=== PATIENT | male | born 1955 | race Caucasian/White ===

== ENCOUNTER 2019-05-16 05:17 | Emergency (ER) | payer MEDICARE, OTHER, SELFPAY ==
--- NOTE | 2019-05-16 05:28 | ED.GENADULT ---
HPI - General Adult General Chief complaint: Headache Stated complaint: sudden onset blinding headache/hx sinisitis Time Seen by Provider: 05/16/19 05:19 Source: patient Mode of arrival: Ambulatory Limitations: no limitations History of Present Illness HPI narrative: Patient is a 64-year-old male with known chronic sinus disease here for evaluation of a fairly sudden onset of bilateral with left being greater than right frontal sinus pain last evening. He states that this is the worst he has ever felt. He has had sinus disease in the past has been on antibiotics in the past. Has had to have surgery in the past. Does not currently on any decongestants. No fevers. No sore throat. Took several doses of Tylenol since last evening without any improvement. No vision changes. No neck pain Related Data Home Medications Medication Instructions Recorded Confirmed ESOMEPRAZOLE SODIUM (NEXIUM) 20 mg PO QDAY@0600 #0 07/16/11 Fluticasone Propionate (FLONASE) 2 spray INTRANASAL QDAY #0 07/16/11 fluticasone propion-salmeterol 1 puff INH Q DAY #14 dose 07/16/11 [Advair Diskus] Previous Rx's Medication Instructions Recorded azithromycin See Rx Instructions .ROUTE 05/16/19 .COMPLEX #6 tab hydrocodone-acetaminophen [[place]] 1 tab PO Q4-6H PRN #10 tab 05/16/19 loratadine [Claritin] 10 mg PO DAILY #30 tab 05/16/19 prednisone 40 mg PO DAILY 5 Days #10 tab 05/16/19 Allergies Allergy/AdvReac Type Severity Reaction Status Date / Time From AZMACORT Allergy Mild Uncoded 08/13/17 12:19 Review of Systems Constitutional Constitutional: Denies fever(s) and Reports headache(s) ENT Ears, Nose, Mouth, and Throat: Denies vertigo, Reports headache(s) and Reports sinus pressure Cardiovascular Cardiovascular: Reports chest pain and Denies dyspnea Respiratory Respiratory: Denies dyspnea Gastrointestinal Gastrointestinal: Denies abdominal pain, Reports nausea and Denies vomiting Genitourinary Genitourinary: Denies dysuria Musculoskeletal Musculoskeletal: Denies myalgias and Denies arthralgias Integumentary/Breasts Skin/Breast: Denies rash Neurologic Neurologic: Denies vertigo and Reports headache(s) Hematologic/Lymphatic Hematologic/Lymphatic: Denies easy bleeding and Denies easy bruising Patient History Medical History Sinus disease (Acute) Social History Smoking Status: Never smoker Exam Initial Vital Signs Initial Vital Signs: Vital Signs Temperature 97.7 F 05/16/19 05:29 Pulse Rate 62 05/16/19 05:29 Respiratory Rate 14 05/16/19 05:29 Blood Pressure 154/93 H 05/16/19 05:29 Pulse Oximetry 99 05/16/19 05:29 Const General: cooperative and No comfortable (Uncomfortable) Limitations: mental status not altered HENMT Head: normal to inspection and normocephalic Ears: TM's normal bilaterally Nose: external nose normal Face and sinus: no tenderness Resp Effort & Inspection: normal respiratory effort Auscultation: clear to auscultation bilaterally Cardio Rate: regular rate Rhythm: regular rhythm Skin Lesions: no lesions Rashes: no rashes Neuro General: alert, awake and oriented x3 Cranial Nerves: CN's II-XI intact bilaterally Cognition: normal cognition Speech: speech normal Motor: muscle tone normal throughout Extrem General: normal to inspection and capillary refill normal Psych Appearance: grossly normal and well kempt Course Orders Ordered: ED Orders 05/16/19 05:35 CT head/brain wo con Stat 05/16/19 05:45 Basic Metabolic Panel Stat Complete Blood Count AUTO DIFF Stat Discontinued Medications Hydromorphone HCl (Dilaudid) 0.5 mg IV NOW ONE Stop: 05/16/19 05:36 Last Admin: 05/16/19 05:57 Dose: 0.5 mg Documented by: VLAD Methylprednisolone (Solu-Medrol 125 Mg Vial) 125 mg IV NOW ONE Stop: 05/16/19 05:36 Last Admin: 05/16/19 05:56 Dose: 125 mg Documented by: VLAD Ondansetron HCl (Zofran) 4 mg IV NOW ONE Stop: 05/16/19 06:02 Vital Signs Vital signs: Vital Signs - 8 hr 05/16/19 05:29 Temperature 97.7 F Pulse Rate 62 Respiratory Rate 14 Blood Pressure 154/93 H Pulse Oximetry 99 Medical Decision Making Lab Data Lab results reviewed: Yes I reviewed the patient's lab results. Result diagrams: 05/16/19 05:45 05/16/19 05:45 Labs: Lab Results 05/16/19 05/16/19 Range/Units 05:45 05:45 WBC 5.8 (4.5-11.0) X10^3/uL RBC 4.58 (4.5-5.9) X10^6/uL Hgb 14.6 (13.5-17.5) g/dL Hct 41.9 (41-53) % MCV 91.4 (80-100) fL MCH 31.9 (26-34) PG MCHC 34.9 (30-36) % RDW 12.8 (11.6-14.8) % Plt Count 261 (150-400) X10^3/uL Neut % (Auto) 44.4 L (50-75) % Lymph % (Auto) 43.0 H (25-40) % [place] % (Auto) 9.2 (3-14) % Eos % (Auto) 2.5 (2-4) % Baso % (Auto) 0.9 (0-2) % Neut # (Auto) 2600 (0886-8176) /uL Lymph # (Auto) 2500 (5086-1927) /uL [place] # (Auto) 500 (0-900) /uL Eos # (Auto) 100 (0-450) /uL Baso # (Auto) 0 (0-100) /uL Sodium 138 (137-145) mmol/L Potassium 4.0 (3.4-5.1) mmol/L Chloride 105 (98-107) mmol/L Carbon Dioxide 24 (22-32) mmol/L BUN 14 (9-20) mg/dL Creatinine 0.80 (0.66-1.25) mg/dL Estimated GFR > 60.0 (>60) mL/min BUN/Creatinine Ratio 17.5 (6-22) Glucose 162 H (80-110) mg/dL Calcium 9.9 (8.4-10.2) mg/dL Imaging Data CT scan - head: Radiologist's Impression: No intracranial abnormalities demonstrated Chronic expansion dental paste vacation of the left frontal and anterior ethmoid sinuses, possibly mucocele formation. No acute sinusitis MDM Narrative Medical decision making narrative: Patient did have a fairly sudden onset of his symptoms last evening any states that this is the worst headache that he has had however in character this feels like prior sinus headaches. He does have sinus disease on the CT scan over his left frontal sinus which is where he is experiencing the majority of his symptoms. Given his history I do feel that this is less likely a subarachnoid hemorrhage in more likely sinus disease. We will hold on a lumbar puncture for now. Long discussion with the patient regarding his symptoms. Will send home with a prescription for prednisone. Will give a short course of pain medication. Also send him home with Claritin. He was also given a prescription for antibiotics however he is going to hold on taking these to see whether not the steroids and other treatments will help. He was also given follow-up with the your nose and throat group here in [facility]. He is given return precautions and follow-up instructions. He expressed understanding and agreement with plan. Discharge Plan Departure Patient Disposition: Home Clinical Impression: Sinusitis chronic, frontal Headache Qualifiers: Headache type: unspecified Headache chronicity pattern: unspecified pattern Intractability: not intractable Qualified Code(s): R51 - Headache Instructions: Antihistamine/Decongestant (By mouth) Activity Restrictions/Additional Instructions: Take the medications like we discussed. Contact your primary provider for a follow-up. You can contact the [facility] ENT group at [phone]. Return to the emergency department for any new or worsening symptoms Prescriptions: New loratadine [Claritin] 10 mg tablet 10 mg PO DAILY Qty: 30 RF: 0 prednisone 20 mg tablet 40 mg PO DAILY 5 Days Qty: 10 RF: 0 hydrocodone-acetaminophen [[place]] 5-325 mg tablet 1 tab PO Q4-6H PRN (Reason: pain) Qty: 10 RF: 0 azithromycin 250 mg tablet See Rx Instructions .ROUTE .COMPLEX Qty: 6 RF: 0 No Action ESOMEPRAZOLE SODIUM (NEXIUM) 20 mg PO QDAY@0600 Qty: 0 RF: 0 fluticasone propion-salmeterol [Advair Diskus] 100 MCG/50 MCG blister with device 1 puff INH Q DAY Qty: 14 RF: 0 Fluticasone Propionate (FLONASE) 2 spray Intranasal QDAY Qty: 0 RF: 0 Referrals: Amanda Barrios DO [Primary Care Provider] -
[2019-05-16 05:29] VITALS: BP 154/93; PULSE 62; RESP 14; TEMP 36.5; O2SAT 99; BMI 39.0
--- NOTE | 2019-05-16 05:35 | DI.CT.S_ITS ---
PROCEDURE: CT HEAD/BRAIN WO CON INDICATIONS: sudden onset headache eval for SAH TECHNIQUE: Noncontrast 4.5 mm thick angled axial sections acquired from the foramen magnum to the vertex, with coronal and sagittal reformats. For radiation dose reduction, the following was used: automated exposure control, adjustment of mA and/or kV according to patient size. COMPARISON: [facility], MR, BRAIN WITHOUT CONTRAST, 07/26/2011, 8:33. FINDINGS: Image quality: Diagnostic. CSF spaces: Basal cisterns are patent. No extra-axial fluid collections. Ventricles are normal in size and shape. Brain: No midline shift. No intracranial masses or hemorrhage. Harding-white matter interface is normal. Skull and face: Calvarium and visualized facial bones are intact, without suspicious lesions. Sinuses: Complete opacification with mild enlargement of the left frontal sinus is evident that extends into the frontoethmoidal recess. There is an additional focal polypoid area of enlargement evident involving the region of the middle nasal turbinate adjacent to the nasal septum. IMPRESSION: 1. Negative head CT. No acute intracranial hemorrhage. 2. Chronic left frontal and ethmoidal sinus disease versus developing mucocele. 3. Questionable polyp of the middle nasal turbinate on the right. Contrast enhanced MRI of the sinuses may be helpful for better characterization. Note: The preliminary report provided by [facility] is concordant with the final report. Dictated by: Baldemar Berumen M.D. on 05/16/2019 at 6:59 Approved by: Baldemar Berumen M.D. on 05/16/2019 at 7:03
[2019-05-16] MEDS: methylPREDNISolone 125 MG/2 ML VIAL IV (05:56)
[2019-05-16 05:57] LABS: Add Manual Diff / Slide Review NO; Basophils Absolute Auto 0 /uL (0-100); Basophils Percent Auto 0.9 % (0-2); Eosinophils Absolute Auto 100 /uL (0-450); Eosinophils Percent Auto 2.5 % (2-4); Hematocrit 41.9 % (41-53); Hemoglobin 14.6 g/dL (13.5-17.5); Lymphocytes Absolute Auto 2500 /uL (1100-4500); Mean Corpuscular HGB Conc 34.9 % (30-36); Mean Corpuscular Hemoglobin 31.9 PG (26-34); Mean Corpuscular Volume 91.4 fL (80-100); Monocytes Absolute Auto 500 /uL (0-900); Monocytes Percent Auto 9.2 % (3-14); Neutrophils Absolute Auto 2600 /uL (1500-7000); Neutrophils Percent Auto 44.4 % (50-75); Platelet Count 261 X10^3/uL (150-400); Red Blood Cell Count 4.58 X10^6/uL (4.5-5.9); Red Cell Distribution Width 12.8 % (11.6-14.8); White Blood Cell Count 5.8 X10^3/uL (4.5-11.0)
[2019-05-16] MEDS: HYDROMORPHONE 0.5 MG INJ IV (05:57)
[2019-05-16 06:05] LABS: BUN Creatinine Ratio 17.5 (6-22); Blood Urea Nitrogen 14 mg/dL (9-20); Calcium 9.9 mg/dL (8.4-10.2); Carbon Dioxide 24 mmol/L (22-32); Chloride 105 mmol/L (98-107); Estimated Glomerular Filt Rate > 60.0 mL/min (>60); Glucose 162 mg/dL (80-110); HEMOLYSIS < 15 (0-50); Sodium 138 mmol/L (137-145)
[2019-05-16 06:54] VITALS: BP 163/88; PULSE 60; RESP 14; O2SAT 99
== END 2019-05-16 06:56 | disposition home or self-care (01) ==
PROVIDERS: Emergency Provider Emergency Medicine; PCP Family Medicine
DX: J32.1 Chronic frontal sinusitis (principal); R51 Headache; R07.9 Chest pain, unspecified
CPT/HCPCS: 36415; 70450; 80048; 85025; 96374; 96375; 99284; J1170; J2930

== ENCOUNTER 2020-01-01 16:20 | Emergency (ER) | payer MEDICARE, OTHER, SELFPAY ==
[2020-01-01 16:28] VITALS: BP 142/83; PULSE 72; RESP 16; TEMP 36.7; O2SAT 97; BMI 38.3
--- NOTE | 2020-01-01 20:01 | ED.GENADULT ---
HPI - General Adult General Chief complaint: Ear Stated complaint: pain in left ear, jaw pain, cant chew Time Seen by Provider: 01/01/20 18:10 Source: patient Mode of arrival: Ambulatory Limitations: no limitations History of Present Illness HPI narrative: 64-year-old male here for evaluation of left ear pain and left-sided face and jaw pain. Patient states that his symptoms started yesterday morning. He states he felt like that there was something like a pimple in his left ear. He has ruptured this left eardrum in the past. He states he does have a muffled hearing in the left ear. Also has problems chewing an opening his drawn the left. No problems breathing. Related Data Home Medications Medication Instructions Recorded Confirmed ESOMEPRAZOLE SODIUM (NEXIUM) 20 mg PO QDAY@0600 #0 07/16/11 Fluticasone Propionate (FLONASE) 2 spray INTRANASAL QDAY #0 07/16/11 fluticasone propion-salmeterol 1 puff INH Q DAY #14 dose 07/16/11 [Advair Diskus] Previous Rx's Medication Instructions Recorded azithromycin See Rx Instructions .ROUTE 05/16/19 .COMPLEX #6 tab hydrocodone-acetaminophen [[place]] 1 tab PO Q4-6H PRN #10 tab 05/16/19 loratadine [Claritin] 10 mg PO DAILY #30 tab 05/16/19 ofloxacin 10 drop EAR-LEFT DAILY 7 Days #10 01/01/20 ml Allergies Allergy/AdvReac Type Severity Reaction Status Date / Time From AZMACORT Allergy Mild Uncoded 01/01/20 16:28 Review of Systems Constitutional Constitutional: Denies fever(s) and Denies headache(s) ENT Ears, Nose, Mouth, and Throat: Reports dental pain (Left side), Denies vertigo, Denies dizziness, Denies headache(s), Denies nasal congestion and Denies nasal discharge Comments: Left ear pain Cardiovascular Cardiovascular: Denies dyspnea Respiratory Respiratory: Denies dyspnea Integumentary/Breasts Skin/Breast: Denies lesions and Denies rash Neurologic Neurologic: Denies behavioral changes, Denies vertigo, Denies dizziness and Denies headache(s) Psychiatric Psychiatric: Denies behavioral changes Hematologic/Lymphatic Hematologic/Lymphatic: Denies easy bleeding and Denies easy bruising Patient History Medical History Sinus disease (Acute) Social History Smoking Status: Never smoker Smoking Status: Never smoker alcohol intake frequency: 0-2 drinks per day Substance Use Type: does not use Exam Initial Vital Signs Initial Vital Signs: Vital Signs Temperature 98.0 F 01/01/20 16:28 Pulse Rate 72 01/01/20 16:28 Respiratory Rate 16 01/01/20 16:28 Blood Pressure 142/83 H 01/01/20 16:28 Pulse Oximetry 97 01/01/20 16:28 Const General: cooperative, healthy appearing and comfortable HENMT Head: normal to inspection and normocephalic Ears: TM normal on the left and EAC abnormal erythema on the left and edema on the left Neck Lymphatic: lymphadenopathy (Left preauricular/submandibular) Resp Effort & Inspection: normal respiratory effort Skin Lesions: no lesions Rashes: no rashes Neuro General: patient alert and patient awake Extrem General: capillary refill normal Course Orders Ordered: Discontinued Medications Ciprofloxacin/Dexamethasone (Ciprodex Otic Susp) 4 drops EAR-LEFT NOW ONE Stop: 01/01/20 20:03 Last Admin: 01/01/20 20:28 Dose: 10 drop Documented by: KRISTIAN Vital Signs Vital signs: Vital Signs - 8 hr 01/01/20 16:28 01/01/20 20:36 Temperature 98.0 F 98.0 F Pulse Rate 72 72 Respiratory Rate 16 16 Blood Pressure 142/83 H 140/80 Pulse Oximetry 97 98 Medical Decision Making [facility] Narrative Medical decision making narrative: History and physical exam consistent with otitis externa. Does have some mild swelling of the left EAC however the tympanic membrane is visible and it is unremarkable. Patient is given 1st dose of ear drops here in the ER and will send home with the remainder of the about on instructions for use. Will hold on any oral antibiotics for now. Did discuss return precautions and follow-up instructions. He expressed understanding and agreement. Discharge Plan Departure Patient Disposition: Home Clinical Impression: Otitis externa Qualifiers: Otitis externa type: unspecified type Chronicity: acute Laterality: left Qualified Code(s): H60.502 - Unspecified acute noninfective otitis externa, left ear Discharge Date/Time: 01/01/20 20:36 Instructions: DI for Otitis Externa Activity Restrictions/Additional Instructions: Your 1st dose of your drops was given here in the emergency department. This medication should be administered as 10 drops in the left ear once a day for the next 7 days. You can take Tylenol and/or ibuprofen for any discomfort. Return to the emergency department for any new or worsening symptoms Prescriptions: New ofloxacin 0.3 % drops 10 drop EAR-LEFT DAILY 7 Days Qty: 10 RF: 0 No Action ESOMEPRAZOLE SODIUM (NEXIUM) 20 mg PO QDAY@0600 Qty: 0 RF: 0 fluticasone propion-salmeterol [Advair Diskus] 100 MCG/50 MCG blister with device 1 puff INH Q DAY Qty: 14 RF: 0 Fluticasone Propionate (FLONASE) 2 spray Intranasal QDAY Qty: 0 RF: 0 loratadine [Claritin] 10 mg tablet 10 mg PO DAILY Qty: 30 RF: 0 hydrocodone-acetaminophen [[place]] 5-325 mg tablet 1 tab PO Q4-6H PRN (Reason: pain) Qty: 10 RF: 0 azithromycin 250 mg tablet See Rx Instructions .ROUTE .COMPLEX Qty: 6 RF: 0 Referrals: Amanda Barrios DO [Primary Care Provider] -
[2020-01-01] MEDS: CIPROFLOXACIN/DEXAMETH OTIC SUSP 4 DROPS EAR-LEFT (20:28)
[2020-01-01 20:36] VITALS: BP 140/80; PULSE 72; RESP 16; TEMP 36.7; O2SAT 98
== END 2020-01-01 20:36 | disposition home or self-care (01) ==
PROVIDERS: Emergency Provider Emergency Medicine; PCP Family Medicine
DX: H60.502 Unspecified acute noninfective otitis externa, left ear (principal)
CPT/HCPCS: 99282

== ENCOUNTER → 2020-07-31 15:43 | Outpatient (CLI) | payer MEDICARE, OTHER, SELFPAY ==
--- NOTE | 2020-07-31 15:46 | DI.MRI.S_ITS ---
PROCEDURE: MR SHOULDER RT WO CON INDICATIONS: PAIN IN RIGHT SHOULDER TECHNIQUE: Noncontrast oblique coronal T2 fast spin echo with fat saturation, oblique sagittal T1 spin echo and T2 fast spin echo with fat saturation, axial T1 spin echo and T2 fast spin echo with fat saturation through the shoulder. COMPARISON: None. FINDINGS: Rotator cuff: Full-thickness tear of the supraspinatus and infraspinatus tendons measuring approximately 3.5 cm in AP dimension as seen on sagittal pulse sequences. Teres minor tendinopathy also noted, mild. There is full-thickness tear of the subscapularis tendon which is not well visualized. Background tendinopathy and intrasubstance signal changes. There is severe atrophy of the supraspinatus and infraspinatus muscle. There is also mild atrophy of the subscapularis muscle. Bones and bursae: No bone marrow contusions or fractures. Moderate acromioclavicular joint degeneration. Acromion demonstrates conventional anatomy, without an os acromiale. Mild joint effusion. Capsule and soft tissues: Labrum: Ill-defined circumferential labral tear which is likely chronic. Posterior subluxed appearance of the humeral head relative to the glenoid raising the possibility of microinstability. Medial subluxation of the long head biceps tendon. There is background long head biceps tendinopathy and partial tear. No definite complete rupture. Partial obliteration of the subcoracoid fat signal intensity. Coracohumeral ligament intact. IMPRESSION: Full-thickness tear involving the supraspinatus, infraspinatus and subscapularis tendons. Severe atrophy of the supraspinatus and infraspinatus muscles. Mild atrophy of the subscapularis muscle Mild joint effusion. Circumferential ill-defined labral tear, likely chronic. Posterior subluxed appearance of the humeral head relative to the glenoid which raises the possibility of microinstability. Medial subluxation of long head biceps tendon with background tendinopathy and partial tear. Dictated by: Víctor Burnette M.D. on 07/31/2020 at 16:47 Approved by: Víctor Burnette M.D. on 07/31/2020 at 16:58
== END ==
PROVIDERS: PCP Family Medicine; Referring Provider Family Medicine; Visit Provider Family Medicine
DX: M25.511 Pain in right shoulder (principal); M75.121 Complete rotator cuff tear or rupture of right shoulder, not specified as traumatic; S46.111A Strain of muscle, fascia and tendon of long head of biceps, right arm, initial encounter; S43.491A Other sprain of right shoulder joint, initial encounter; M19.011 Primary osteoarthritis, right shoulder; M25.411 Effusion, right shoulder
CPT/HCPCS: 73221

== ENCOUNTER → 2020-08-28 13:30 | Outpatient (CLI) | payer MEDICARE, OTHER, SELFPAY ==
[2020-08-28 15:53] LABS: COVID19 -Nasal RAPID Negative (Negative)
== END ==
PROVIDERS: PCP Family Medicine; Visit Provider Physician Assistant
DX: Z01.812 Encounter for preprocedural laboratory examination (principal); Z20.822 Contact with and (suspected) exposure to COVID-19
CPT/HCPCS: 87635; C9803

== ENCOUNTER 2020-08-31 06:30 | Day surgery (SDC) | payer MEDICARE, OTHER, SELFPAY ==
[2020-08-29 13:23] VITALS: BMI 39.0
[2020-08-31] VITALS (13 sets, daily range): BP systolic 127–149; BP diastolic 73–85; PULSE 67–83; RESP 10–20; TEMP 36.3–36.8; O2SAT 92–96; BMI 38.0
[2020-08-31] MEDS: ACETAMINOPHEN 325 MG TABLET 975 MG PO (07:07)
[2020-08-31] MEDS: CELECOXIB 200 MG CAPSULE 400 MG PO (07:07)
[2020-08-31] MEDS: GABAPENTIN 300 MG CAPSULE PO (07:07)
[2020-08-31] MEDS: LACTATED RINGERS 1,000 ML 42 ML IV ×2 (07:08→09:30)
--- NOTE | 2020-08-31 07:38 | PM.PREOP ---
Pre-operative Note COVID-19 COVID-19 status: Negative Result date/Date tested (Pos, Neg/Pending): 08/29/20 Interval Note History & Physical reviewed/Exam performed by Physician: Yes Changes to H&P: No
[2020-08-31] MEDS: CEFAZOLIN 2 GM/100 ML FROZ.PIGGY IV (08:32)
--- NOTE | 2020-08-31 08:44 | PM.PROC.1 ---
Procedures Date/Time Date of procedure: 08/31/20 Time of procedure: 08:13 Nerve Block Time out performed: Yes Nerve blocks: brachial plexus (intrascalene) Procedure successful: Yes Patient tolerated procedure: well and no complications Additional comments: Intrascalene block performed for post-op pain control at surgeon request. Patient was positioned with IV, O2, monitors and rescue meds available. Prepped and timeout performed. Target identified with continuous ultrasound guidance. 12mL of bupivicaine 0.5% was injected perineurally with intermittent aspiration and injection. No blood, no paresthesias, no acute complications.
--- NOTE | 2020-08-31 08:49 | SUR.OPER ---
Beach chair with/Maquet shoulder positioner. Lower body on padded OR bed. Head in foam padded head cradle, secured with straps. Non-operative arm secured <90 degrees abduction. Pillow under knees. Safety belt at thigh. Cloth tape over blanket over lower legs.
[2020-08-31] MEDS: BUPIVACAINE 0.5% W/ EPI (PF) 30 ML VIAL INJ (08:57)
[2020-08-31] MEDS: SODIUM CHLORIDE IRRIG SOLUTION 3,000 ML, EPINEPHrine 1 MG IRR (09:01)
[2020-08-31] MEDS: fentaNYL 100 MCG/2 ML INJ IV ×4 (11:10→12:01)
[2020-08-31] MEDS: OXYCODONE IR 5 MG TABLET PO ×2 (11:11→11:40)
[2020-08-31] MEDS: ONDANSETRON 4 MG/2 ML INJ IV (11:11)
--- NOTE | 2020-08-31 11:21 | PM.OP.1 ---
Operative Date/Time/Diagnoses Date of procedure: 08/31/20 Time of procedure: 08:30 Pre-op diagnosis: Right shoulder massive rotator cuff tear Post-op diagnosis: same Procedure & Clinicians Procedure: Right shoulder arthroscopic debridement and subacromial decompression as well as distal excision. Open repair the supraspinatus, infraspinatus, subscapularis. Same procedure as scheduled: Yes Indications: Right shoulder massive rotator cuff tear Surgeon: Sergio Cordova In House Cra: Gabriel Dumont Anesthesia Type: General and Peripheral nerve block Operative Notes Findings: Complete tears of the infraspinatus supraspinatus and subscapularis. Infraspinatus and supraspinatus were retracted to the glenoid. Subscapularis was also retracted just past the coracoid process. No sign of any significant glenohumeral joint arthritis. Early signs of a high-riding humeral head. Closure Type: primary Specimen(s): none sent Applied: implant(s) (Two SwiveLock anchors for the subscapularis repair. Speed bridge repair using 4 anchors for the supraspinatus and infraspinatus.) Estimated Blood Loss (mL): 10 Blood products transfused: none Procedure in detail: On date of service, Patient was met in the holding area. The operative site was signed and witnessed by the OR staff. The surgery was once again discussed with the patient and any remaining questions they had were answered fully. Patient was taken back to the operating theater and placed on the operating table in a supine position. Great care was taken to ensure that all bony prominences were properly padded. Patient was then placed into the beach chair position. The head and neck were properly positioned and secured. A timeout was performed verifying patient's name, procedure, and the operative site. The upper extremity was then prepped and draped in the normal sterile fashion. Previously, the bony anatomy and portal sites were marked out as well as injected with Marcaine with epinephrine. An 11 blade was used to make an incision in the posterior aspect of the shoulder. The camera was placed, and a diagnostic shoulder scope was performed. Findings listed above. Next under direct visualization, a anterior portal was made. Shaver was brought in and extensive debridement of the glenohumeral joint was performed. Patient had significant amount of degenerative changes to the labral tissue. Once all the degenerative tissue in the glenohumeral joint was removed we then turned our attention to the subacromial space. Next the camera was placed into the subacromial space. A lateral portal was obtained under direct visualization. A combination of the shaver and vapor wand, a debridement of the inflamed tissue as well as inflamed bursa was performed. The lateral gutter was also cleaned out. This gave us good visualization of the bursal aspect of the rotator cuff as well as the acromial arch. As mentioned above, patient had complete tear of the supraspinatus and infraspinatus. The torn edge of the rotator cuff showed quite a bit of degenerative changes. Shaver was used to remove the bursal tissue as well as debride out the degenerative edges of the rotator cuff. Liberator was used to free up the rotator cuff both bursal and articular sided. Patient also had a massive subscapularis tear and due to this fact we converted to a open procedure at this point. A lateral incision was used to address the supraspinatus and infraspinatus. Ten blade was used to incise through skin and fascial tissue. Electrocautery was used to achieve hemostasis. Continued sharp dissection was performed until the deltoid fascia was visualized. This was extended both distally and proximally giving us good visualization of the humeral head as well as the subacromial space. Using a Johnson elevator the rotator cuff was freed of any adhesions both articular sided as well as bursal sided. The degenerative portion was sharply excised using a 10 blade. Traction sutures were placed. Patient had A U shaped tear which was amenable to a [id number] repair. 2. FiberWire was used to do a [id number] repair converting the rather large rotator cuff tear to something smaller and more manageable. Next a speed bridge repair was done to repair both the supraspinatus and infraspinatus back to the rotator cuff footprint. Combination of the rongeur and bur were used to decorticate the rotator cuff footprint. Double row repair was performed of the supraspinatus and infraspinatus forming a secure repair as well as rhea covering the humeral head which was previously almost completely exposed. We next turned our attention to subscapularis. A anterior incision was made extending our anterior portal. This was done with a 10 blade. Johnson elevator was used again to free up the tendon tissue from adhesions both bursal sided and articular sided. Once we had good excursion of the subscapularis two fiber tape was passed in a horizontal mattress fashion and then was placed into two swivel lock anchor to secure the subscapularis back to the lesser tuberosity. Shoulder was taken through range of motion. Good overall repair and coverage of the rotator cuff and humeral head. Wound was copiously irrigated then closed in a layered fashion. Deltoid fascia was repaired using FiberWire. This gave a good solid repair of the split that was made in the deltoid fascia. Shoulder was cleaned dried dressed patient was extubated and taken to the PACU in stable condition. Complications: none Post-operative Condition: stable Disposition: PACU Plan for aftercare: Patient will need to be in the sling for 6 weeks to protect his rotator cuff repair.
[2020-08-31] MEDS: hydrOXYzine pamoate 25 MG CAPSULE 50 MG PO (11:38)
--- NOTE | 2020-08-31 12:59 | SUR.PHASEII ---
Pt ready to go home, called, pt assisted to dress by Helen PORTILLO. Sitting awaiting ride to come.
--- NOTE | 2020-08-31 13:09 | SUR.PHASEII ---
Pt left unit in stable condition.
== END 2020-08-31 13:09 | disposition home or self-care (01) ==
PROVIDERS: PCP Family Medicine; Referring Provider Family Medicine; Visit Provider Orthopaedic Surgery
PROC: (CPT 29827; principal; 2020-08-31 07:45)
DX: S46.011A Strain of muscle(s) and tendon(s) of the rotator cuff of right shoulder, initial encounter (principal); S46.211A Strain of muscle, fascia and tendon of other parts of biceps, right arm, initial encounter; E66.9 Obesity, unspecified; E11.9 Type 2 diabetes mellitus without complications; J45.909 Unspecified asthma, uncomplicated; G47.33 Obstructive sleep apnea (adult) (pediatric); K21.9 Gastro-esophageal reflux disease without esophagitis; W19.XXXA Unspecified fall, initial encounter; Z68.39 Body mass index [BMI] 39.0-39.9, adult; Z79.84 Long term (current) use of oral hypoglycemic drugs; Z87.891 Personal history of nicotine dependence
CPT/HCPCS: 23412; 29823; 29826; 82962; J0171; J0330; J0690; J2250; J2405; J2704; J3010

== ENCOUNTER → 2021-12-03 17:15 | Outpatient (CLI) | payer MEDICARE, OTHER, SELFPAY ==
--- NOTE | 2021-12-03 | DI.MRI.S_ITS ---
PROCEDURE: MR ANGIO HEAD WO CON INDICATIONS: Primary thunderclap headache TECHNIQUE: Noncontrast axial 3-D [id number] MR angiogram, with 3-dimensional maximum intensity projection (MIP) reformats of the internal carotid arteries and posterior circulation then performed. COMPARISON: [facility], MR, BRAIN WITHOUT CONTRAST, 07/26/2011, 8:33. [facility], MR, MR HEAD/BRAIN WO CON, 12/03/2021, 17:33. FINDINGS: Image quality: Excellent. Anterior circulation: Intracranial internal carotid arteries demonstrate normal size and intraluminal flow signal. The flow within the paired anterior cerebral arteries is normal and symmetric. The flow within the middle cerebral arteries is normal and symmetric. The anterior communicating artery is seen. No stenoses, occlusions, or aneurysms. Posterior circulation: Visualized portions of the vertebral arteries demonstrate normal caliber, and join to form a normal appearing basilar artery. The flow within the posterior cerebral arteries is normal and symmetric. No stenoses, occlusions, or aneurysms. IMPRESSION: Unremarkable intracranial angiogram, without an aneurysm seen. Dictated by: Kirby Peralta M.D. on 12/03/2021 at 17:56 Approved by: Kirby Peralta M.D. on 12/03/2021 at 17:57
--- NOTE | 2021-12-03 | DI.MRI.S_ITS ---
PROCEDURE: MR HEAD/BRAIN WO CON INDICATIONS: Primary thunderclap headache TECHNIQUE: Non-contrast axial T1 spin echo, axial T2 fast spin echo, sagittal and axial FLAIR, coronal T2 fast spin echo, axial gradient echo, axial diffusion and ADC through the brain. COMPARISON: [facility], CT, CT HEAD/BRAIN WO CON, 05/16/2019, 5:38. [facility], MR, MR ANGIO HEAD WO CON, 12/03/2021, 17:22. [facility], MR, BRAIN WITHOUT CONTRAST, 07/26/2011, 8:33. FINDINGS: Image quality: Excellent. CSF spaces: Ventricles appear symmetric in size and shape. Basal cisterns are patent. No extra-axial fluid collections. Brain: No intracranial bleeds or mass effects. There is cerebral volume loss for age. There are periventricular and deep white matter chronic small vessel ischemic changes. Brainstem appears normal. Diffusion-weighted images show no acute ischemic insults. No chronic ischemic insults. Normal intravascular flow voids are present. Skull and face: Calvarial bone marrow is normal in signal. Orbits are normal. Sinuses: Scattered areas of moderate mucosal thickening can be seen within the paranasal sinuses. Prior postoperative change can be seen, with at least right antrectomy. No abnormal fluid is seen within the mastoid air cells. IMPRESSION: No significant brain abnormality can be seen. Paranasal sinus disease and prior sinus surgery can be seen. Dictated by: Kirby Peralta M.D. on 12/03/2021 at 18:10 Approved by: Kirby Peralta M.D. on 12/03/2021 at 18:12
== END ==
PROVIDERS: PCP Family Medicine; Referring Provider Psychiatry & Neurology Neuromuscular Medicine; Visit Provider Psychiatry & Neurology Neuromuscular Medicine
DX: G44.53 Primary thunderclap headache (principal); J32.8 Other chronic sinusitis
CPT/HCPCS: 70544; 70551

== ENCOUNTER 2023-03-31 16:36 | Emergency (ER) | payer MEDICARE, OTHER, SELFPAY ==
[2023-03-31 17:10] VITALS: BP 162/106; PULSE 86; RESP 18; TEMP 36.9; O2SAT 96; BMI 37.6
[2023-03-31 17:38] LABS: Appearance Urine UA CLEAR; Bilirubin Urine UA NEGATIVE (NEGATIVE); Color Urine UA YELLOW; Glucose Urine UA NEGATIVE (Negative); Ketones Urine UA TRACE (NEGATIVE); Leukocyte Esterase Urine UA NEGATIVE (NEGATIVE); Nitrite Urine UA NEGATIVE (Negative); Occult Blood Urine UA 1+ (Negative); Protein Urine UA NEGATIVE (Negative); Urobilinogen Urine UA 0.2 E.U./dL (0.2)
[2023-03-31 17:47] LABS: Bacteria Urine None Seen; Culture Indicated Urine Cult Not Indicated; RBC Urine 5-10/HPF (0-5/HPF); Squamous Epithelial Cell Urine 0-1 /HPF (0-5/HPF); WBC Urine 0-1/HPF (0-5/HPF)
[2023-03-31 18:21] LABS: Add Manual Diff / Slide Review NO; Basophils Absolute Auto 100 /uL (0-100); Eosinophils Absolute Auto 200 /uL (0-450); Eosinophils Percent Auto 1.6 % (2-4); Hemoglobin 13.9 g/dL (13.5-17.5); Lymphocytes Absolute Auto 3000 /uL (1100-4500); Lymphocytes Percent Auto 26.5 % (25-40); Mean Corpuscular HGB Conc 34.7 % (30-36); Mean Corpuscular Hemoglobin 30.9 PG (26-34); Mean Corpuscular Volume 88.9 fL (80-100); Monocytes Absolute Auto 800 /uL (0-900); Monocytes Percent Auto 7.2 % (3-14); Neutrophils Absolute Auto 7100 /uL (1500-7000); Neutrophils Percent Auto 63.7 % (50-75); Platelet Count 269 X10^3/uL (150-400); Red Cell Distribution Width 12.9 % (11.6-14.8); White Blood Cell Count 11.1 X10^3/uL (4.5-11.0)
--- NOTE | 2023-03-31 18:26 | ED_ITS ---
HPI - General Adult General Chief complaint: Abdominal Pain Stated complaint: Sharp lower abd pain on left X 4 days Time Seen by Provider: 03/31/23 18:06 Source: patient Mode of arrival: Ambulatory History of Present Illness HPI narrative: Patient is a 68-year-old male who is here for evaluation of left lower quadrant abdominal pain for the past 4 days. No fevers. No nausea or vomiting. No change in bowel habits. No blood in his stool. No urinary symptoms. No change in the pain with urination or bowel movements. He has had a colonoscopy sometime within the past 5-10 years. He was told that he would diverticulosis. No history of diverticulitis. No history of kidney stones. Related Data Home Medications Medication Instructions Recorded Confirmed esomeprazole magnesium 20 mg 20 mg PO DAILY ##0 07/16/11 08/31/20 capsule,delayed release fluticasone 100 mcg-salmeterol 50 1 puff INH Q DAY #14 doses 07/16/11 08/31/20 mcg/dose blistr powdr for inhalation (Advair Diskus) metformin 500 mg tablet,extended 500 mg PO QPM 08/30/20 08/31/20 release 24 hr rosuvastatin 10 mg tablet 10 mg PO QPM 08/30/20 08/31/20 sertraline 50 mg tablet 50 mg PO DAILY 08/30/20 08/31/20 acetaminophen 500 mg tablet 1,500 mg PO BID PRN Pain (Scale 08/31/20 08/31/20 Score 4-6) Previous Rx's Medication Instructions Recorded hydrocodone 7.5 mg-acetaminophen 2 tab PO Q4-6H PRN pain #60 tabs 08/31/20 325 mg tablet hydroxyzine pamoate 25 mg capsule 25 mg PO TID-QID PRN spasms #60 08/31/20 (Vistaril) caps oxycodone-acetaminophen 5 mg-325 2 tab PO Q4-6H PRN pain #60 tabs 08/31/20 mg tablet (Percocet) ciprofloxacin HCl 500 mg tablet 500 mg PO Q12H 10 days #20 tabs 03/31/23 (Cipro) metronidazole 500 mg tablet 500 mg PO TID 10 days #30 tabs 03/31/23 Allergies Allergy/AdvReac Type Severity Reaction Status Date / Time budesonide [From Symbicort] AdvReac Intermediate Rash Verified 08/31/20 06:51 formoterol [From Symbicort] AdvReac Intermediate Rash Verified 08/31/20 06:51 Review of Systems Constitutional Constitutional: Reports system reviewed and no additional complaints, except as documented Cardiovascular Cardiovascular: Reports system reviewed and no additional complaints, except as documented Respiratory Respiratory: Reports system reviewed and no additional complaints, except as documented Gastrointestinal Gastrointestinal: Reports system reviewed and no additional complaints, except as documented Genitourinary Genitourinary: Reports system reviewed and no additional complaints, except as documented Neurologic Neurologic: Reports system reviewed and no additional complaints, except as documented Patient History Medical History Asthma Melanoma Sinus disease Surgical History (Updated 08/29/20 @ 13:34 by Devi Wong RN) Hx of colonoscopy (08/19/20) Social History household members: spouse Smoking Status: Former smoker alcohol intake: current Smoking Status: Former smoker alcohol intake frequency: a few times a week Substance Use Type: does not use Exam Initial Vital Signs Initial Vital Signs: Vital Signs Temperature 98.4 F 03/31/23 17:10 Pulse Rate 86 03/31/23 17:10 Respiratory Rate 18 03/31/23 17:10 Blood Pressure 162/106 H 03/31/23 17:10 Pulse Oximetry 96 03/31/23 17:10 Oxygen Delivery Method Room Air 03/31/23 17:10 HENMT Head: normal to inspection and normocephalic GI Inspection: normal to inspection and non-distended Palpation: soft, No firm, No guarding and tender (Left lower abdomen) Skin General: no rashes or lesions noted Neuro General: patient alert and patient awake Course Orders Ordered: ED Orders 03/31/23 17:14 EKG-12 Lead Stat 03/31/23 17:15 Urinalysis and Microscopic Stat 03/31/23 18:10 Complete Blood Count AUTO DIFF Stat 03/31/23 18:29 CT abdomen pelvis w con Stat 03/31/23 18:50 Comprehensive Metabolic Panel Stat Lipase Stat Discontinued Medications Ondansetron HCl (Ondansetron 4 Mg Odt) 4 mg PO NOW PRN PRN Reason: Nausea And Vomiting Ondansetron HCl (Ondansetron 4 Mg/2 Ml Inj) 4 mg IV NOW PRN PRN Reason: Nausea And Vomiting Vital Signs Vital signs: Vital Signs - 8 hr 03/31/23 17:10 03/31/23 18:54 03/31/23 20:49 Temperature 98.4 F 98.1 F Pulse Rate 86 73 78 Respiratory Rate 18 18 20 Blood Pressure 162/106 H 157/77 H 141/82 H Pulse Oximetry 96 96 96 Oxygen Delivery Method Room Air Room Air Room Air Medical Decision Making Lab Data Lab results reviewed: Yes I reviewed the patient's lab results. 03/31/23 18:10 03/31/23 18:50 Labs: Lab Results 03/31/23 03/31/23 03/31/23 Range/Units 17:15 18:10 18:50 WBC 11.1 H (4.5-11.0) X10^3/uL RBC 4.50 (4.5-5.9) X10^6/uL Hgb 13.9 (13.5-17.5) g/dL Hct 40.0 L (41-53) % MCV 88.9 (80-100) fL MCH 30.9 (26-34) PG MCHC 34.7 (30-36) % RDW 12.9 (11.6-14.8) % Plt Count 269 (150-400) X10^3/uL Neut % (Auto) 63.7 (50-75) % Lymph % (Auto) 26.5 (25-40) % [place] % (Auto) 7.2 (3-14) % Eos % (Auto) 1.6 L (2-4) % Baso % (Auto) 1.0 (0-2) % Neut # (Auto) 7100 H (9627-9228) /uL Lymph # (Auto) 3000 (3982-5396) /uL [place] # (Auto) 800 (0-900) /uL Eos # (Auto) 200 (0-450) /uL Baso # (Auto) 100 (0-100) /uL Sodium 137 (137-145) mmol/L Potassium 4.0 (3.4-5.1) mmol/L Chloride 104 (98-107) mmol/L Carbon Dioxide 26 (22-32) mmol/L BUN 12 (9-20) mg/dL Creatinine 0.80 (0.66-1.25) mg/dL Estimated GFR > 60 (>60) mL/min BUN/Creatinine Ratio 15.0 (6-22) Glucose 110 (80-110) mg/dL Calcium 10.1 (8.4-10.2) mg/dL Total Bilirubin 0.6 (0.2-1.3) mg/dL AST 40 (17-59) IU/L ALT 61 H (<50) IU/L Alkaline Phosphatase 55 (38-126) U/L Total Protein 7.6 (6.3-8.2) g/dL Albumin 4.3 (3.5-5.0) g/dL Globulin 3.3 (1.7-4.1) g/dL Albumin/Globulin Ratio 1.3 (1.0-2.8) Lipase 141 (23-300) U/L Urine Color Yellow Urine Appearance Clear Urine pH 7.0 (4.5-8.0) Ur Specific [place] 1.020 (1.000-1.035) Urine Protein Negative (Negative) Urine Glucose (UA) Negative (Negative) g/dL Urine Ketones Trace H (NEGATIVE) Urine Occult Blood 1+ H (Negative) Urine Nitrate Negative (Negative) Urine Bilirubin Negative (NEGATIVE) Urine Urobilinogen 0.2 (0.2) E.U./dL Ur Leukocyte Esterase Negative (NEGATIVE) Urine RBC 5-10/hpf H (0-5/HPF) Urine WBC 0-1/hpf (0-5/HPF) Ur Squamous Epith Cells 0-1 /hpf (0-5/HPF) Urine Bacteria None seen (None) Ur Culture Indicated? Cult not indicated Imaging Data CT scan - abdomen/pelvis: Radiologist's Impression: PROCEDURE: CT ABDOMEN PELVIS W CON INDICATIONS: LLQ abd pain TECHNIQUE: After the administration of intravenous contrast, axial sections acquired from the lung bases to the pubic symphysis. Coronal and sagittal reformats were performed. For radiation dose reduction, the following was used: automated exposure control, adjustment of mA and/or kV according to patient size. COMPARISON: None. FINDINGS: Image quality: Excellent. Lung bases: Unremarkable. Heart: No significant findings. ABDOMEN: Liver: Liver is mildly hypoattenuating, consistent with diffuse fatty infiltration. Gallbladder: Gallbladder is contracted, which compromises evaluation. No acute inflammatory changes are seen. Biliary ducts: Unremarkable. Pancreas: Unremarkable. Spleen: Unremarkable. Adrenal Glands: Mild nodular thickening of the left adrenal gland without a well-defined nodule seen. Kidneys and Ureters: 2 mm nonobstructing right renal calculus. No hydronephrosis. Stomach and Bowel: Multiple diverticula are seen in the colon. There is bowel wall thickening and inflammatory fat stranding surrounding a diverticulum at the junction of the descending and sigmoid colon. No focal fluid collection is seen. No pneumoperitoneum. Small bowel loops and stomach are unremarkable. Normal appendix. Peritoneum: No abnormal intraperitoneal fluid. No free air. Ventral Wall: No hernias. Abdominal Nodes: No retroperitoneal or mesenteric adenopathy by size criteria. Vessels: Aorta and inferior vena cava are normal in size. PELVIS: Pelvic Organs: Unremarkable. Bladder: Unremarkable. Pelvic Nodes: No enlarged lymph nodes. Miscellaneous: Small fat containing left inguinal hernia. Bones: Unremarkable. IMPRESSION: 1. Acute uncomplicated diverticulitis at the junction of the descending and sigmoid colon. 2. Mild diffuse hepatic steatosis. 3. Nonobstructing 2 mm left renal calculus. ECG Data Attestation: I personally reviewed and interpreted this ECG as follows: Interpretation: Sinus rhythm Ventricular rate is 77 Normal axis Normal QRS Normal QTC No ST T wave changes MDM Narrative Medical decision making narrative: Well-appearing. CT scan shows uncomplicated diverticulitis is tolerating oral intake. No fevers. No indication for admission to the hospital. Will treat with antibiotics. Sent to the pharmacy of his choice. Was given return precautions. He expressed understanding and agreement. Discharge Plan Departure Patient Disposition: Home Clinical Impression: Diverticulitis Instructions: DI for Diverticulitis Activity Restrictions/Additional Instructions: I do recommend that you take the antibiotics as directed. They were electronically sent to the [facility] pharmacy. Contact your primary doctor for a follow-up. Return to the emergency department for new or worsening symptoms. Prescriptions: New ciprofloxacin HCl [Cipro] 500 mg tablet 500 mg PO Q12H 10 Days Qty: 20 0RF metronidazole 500 mg tablet 500 mg PO TID 10 Days Qty: 30 0RF No Action esomeprazole magnesium 20 mg Capsule,Delayed Release(Dr/Ec) 20 mg PO DAILY Qty: 0 fluticasone propion-salmeterol [Advair Diskus] 100 MCG/50 MCG blister with device 1 puff INH Q DAY Qty: 14 metformin 500 mg tablet extended release 24 hr 500 mg PO QPM sertraline 50 mg tablet 50 mg PO DAILY rosuvastatin 10 mg tablet 10 mg PO QPM acetaminophen 500 mg Tablet 1,500 mg PO BID PRN (Reason: Pain (Scale Score 4-6)) oxycodone-acetaminophen [Percocet] 5-325 mg tablet 2 tab PO Q4-6H PRN (Reason: pain) Qty: 60 0RF hydroxyzine pamoate [Vistaril] 25 mg capsule 25 mg PO TID-QID PRN (Reason: spasms) Qty: 60 0RF hydrocodone-acetaminophen 7.5-325 mg tablet 2 tab PO Q4-6H PRN (Reason: pain) Qty: 60 0RF Referrals: Amanda Barrios DO [Primary Care Provider] - Stand Alone Forms: Patient Portal/API
--- NOTE | 2023-03-31 18:29 | DI.CT.S_ITS ---
PROCEDURE: CT ABDOMEN PELVIS W CON INDICATIONS: LLQ abd pain TECHNIQUE: After the administration of intravenous contrast, axial sections acquired from the lung bases to the pubic symphysis. Coronal and sagittal reformats were performed. For radiation dose reduction, the following was used: automated exposure control, adjustment of mA and/or kV according to patient size. COMPARISON: None. FINDINGS: Image quality: Excellent. Lung bases: Unremarkable. Heart: No significant findings. ABDOMEN: Liver: Liver is mildly hypoattenuating, consistent with diffuse fatty infiltration. Gallbladder: Gallbladder is contracted, which compromises evaluation. No acute inflammatory changes are seen. Biliary ducts: Unremarkable. Pancreas: Unremarkable. Spleen: Unremarkable. Adrenal Glands: Mild nodular thickening of the left adrenal gland without a well-defined nodule seen. Kidneys and Ureters: 2 mm nonobstructing right renal calculus. No hydronephrosis. Stomach and Bowel: Multiple diverticula are seen in the colon. There is bowel wall thickening and inflammatory fat stranding surrounding a diverticulum at the junction of the descending and sigmoid colon. No focal fluid collection is seen. No pneumoperitoneum. Small bowel loops and stomach are unremarkable. Normal appendix. Peritoneum: No abnormal intraperitoneal fluid. No free air. Ventral Wall: No hernias. Abdominal Nodes: No retroperitoneal or mesenteric adenopathy by size criteria. Vessels: Aorta and inferior vena cava are normal in size. PELVIS: Pelvic Organs: Unremarkable. Bladder: Unremarkable. Pelvic Nodes: No enlarged lymph nodes. Miscellaneous: Small fat containing left inguinal hernia. Bones: Unremarkable. IMPRESSION: 1. Acute uncomplicated diverticulitis at the junction of the descending and sigmoid colon. 2. Mild diffuse hepatic steatosis. 3. Nonobstructing 2 mm left renal calculus. Approved by: Anup Dia M.D. on 03/31/2023 at 20:11
[2023-03-31 18:54] VITALS: BP 157/77; PULSE 73; RESP 18; O2SAT 96
[2023-03-31 19:20] LABS: Alanine Aminotransferase 61 IU/L (<50); Albumin 4.3 g/dL (3.5-5.0); Albumin Globulin Ratio 1.3 (1.0-2.8); Alkaline Phosphatase 55 U/L (38-126); Aspartate Aminotransferase 40 IU/L (17-59); Bilirubin Total 0.6 mg/dL (0.2-1.3); Blood Urea Nitrogen 12 mg/dL (9-20); Calcium 10.1 mg/dL (8.4-10.2); Carbon Dioxide 26 mmol/L (22-32); Chloride 104 mmol/L (98-107); Estimated Glomerular Filt Rate > 60 mL/min (>60); Globulin 3.3 g/dL (1.7-4.1); Glucose 110 mg/dL (80-110); HEMOLYSIS 17 (0-50); Lipase 141 U/L (23-300); Sodium 137 mmol/L (137-145); Total Protein 7.6 g/dL (6.3-8.2)
[2023-03-31 20:49] VITALS: BP 141/82; PULSE 78; RESP 20; TEMP 36.7; O2SAT 96
== END 2023-03-31 20:56 | disposition home or self-care (01) ==
PROVIDERS: Emergency Medicine; Emergency Provider Emergency Medicine; PCP Family Medicine
DX: K57.32 Diverticulitis of large intestine without perforation or abscess without bleeding (principal); Z87.891 Personal history of nicotine dependence
CPT/HCPCS: 36415; 74177; 80053; 81001; 83690; 85025; 93005; 99283; Q9967

== ENCOUNTER 2024-08-09 08:23 | Day surgery (SDC) | payer MEDICARE, OTHER, SELFPAY ==
--- NOTE | 2024-08-09 | PATH_ITS ---
[facility] Accession Number: [id number] No. of containers..03 Tissue . 01 Material submitted: . PART A: colon - RIGHT COLON PART B: colon - TRANSVERSE POLYP PART C: colon - SIGMOID POLYP . 01 Diagnosis: A. RIGHT COLON: Fragments of tubular adenoma. . B. TRANSVERSE COLON POLYP: Tubular adenoma. . C. SIGMOID COLON POLYP: Hyperplastic polyp. MRV 08/10/2024 1556 Local . 01 Electronically signed: . Codey Elliott MD, PhD, Pathologist NPI- [id number] . 01 Gross description: . Part A: RIGHT COLON: Received in formalin are multiple fragment(s) of grossman, soft tissue measuring 0.1 x 0.1 x 0.1 cm to 0.5 x 0.5 x 0.4 cm submitted entirely in 1 cassette(s) Part B: TRANSVERSE POLYP: Received in formalin is 1 fragment(s) of grossman, soft tissue measuring 0.4 x 0.3 x 0.2 cm submitted entirely in 1 cassette(s) Part C: SIGMOID POLYP: Received in formalin are 2 fragment(s) of grossman, soft tissue measuring 0.2 x 0.2 x 0.1 cm to 0.4 x 0.4 x 0.3 cm submitted entirely in 1 cassette(s) /KARO 08/09/2024 2321 Local . 01 Pathologist provided ICD-10: D12.6 . 01 CPT . 676880, 224327, 474457 Specimen Comment: A courtesy copy of this report has been sent to [phone] Performed at: [address], [place], [place] [id number] MD Vladislav Gallardo MD Phone: [phone]
[2024-08-09] MEDS: LACTATED RINGERS 1,000 ML 42 ML IV (08:36)
[2024-08-09 08:51] VITALS: BP 130/88; PULSE 84; RESP 16; TEMP 36.1; O2SAT 95
--- NOTE | 2024-08-09 08:55 | P.HP_ITS ---
History of Present Illness History of Present Illness Date Patient Seen: 08/09/24 Chief complaint: Colonoscopy Narrative: History of polyps with last colonoscopy 10 years ago negative for any polyps. [facility] Medical History Asthma Melanoma Sinus disease Surgical History (Updated 08/29/20 @ 13:34 by Devi Wong RN) Hx of colonoscopy (08/19/20) Social History household members: spouse Smoking Status: Former smoker alcohol intake: current Meds Home Medications and Allergies Home Medications Medication Instructions Recorded Confirmed Type esomeprazole magnesium 20 mg 20 mg PO DAILY ##0 07/16/11 08/31/20 History capsule,delayed release fluticasone 100 mcg-salmeterol 50 1 puff INH Q DAY #14 doses 07/16/11 08/31/20 History mcg/dose blistr powdr for inhalation (Advair Diskus) rosuvastatin 10 mg tablet 10 mg PO QPM 08/30/20 08/31/20 History sertraline 50 mg tablet 50 mg PO DAILY 08/30/20 08/31/20 History acetaminophen 500 mg tablet 1,500 mg PO BID PRN Pain (Scale 08/31/20 08/31/20 History Score 4-6) hydrocodone 7.5 mg-acetaminophen 2 tab PO Q4-6H PRN pain #60 tabs 08/31/20 Rx 325 mg tablet hydroxyzine pamoate 25 mg capsule 25 mg PO TID-QID PRN spasms #60 08/31/20 Rx (Vistaril) caps oxycodone-acetaminophen 5 mg-325 2 tab PO Q4-6H PRN pain #60 tabs 08/31/20 Rx mg tablet (Percocet) sodium,potassium,mag sulfates 17.5 See Rx Instructions PO .COMPLEX 07/13/24 Rx gram-3.13 gram-1.6 gram oral soln #354 mL (Suprep Bowel Prep Kit) losartan 25 mg tablet 25 mg PO DAILY 08/09/24 08/09/24 History sitagliptin phos 50 mg-metformin 1 tab PO DAILY 08/09/24 08/09/24 History ER 500 mg tablet,extended rel 24h mp (Janumet XR) Allergies Allergy/AdvReac Type Severity Reaction Status Date / Time Sulfa (Sulfonamide Allergy Mild Rash Verified 08/09/24 08:46 Antibiotics) budesonide [From Symbicort] AdvReac Intermediate Rash Verified 08/09/24 08:31 formoterol [From Symbicort] AdvReac Intermediate Rash Verified 08/09/24 08:31 Exam Narrative Exam Narrative: Oropharynx free of lesions Chest clear to auscultation percussion Cardiac exam reveals no S3 or murmur Assessment & Plan Assessment & Plan narrative: Need for follow-up colorectal cancer screening at a 10 year interval. History of polyps in the distant past. Risks, benefits, alternatives have been explained Time-Based Coding :: [TOTAL MINUTES] spent with patient and on the chart (including review of chart, obtaining history, exam, reviewing outside data, placing orders, documenting exam and treatment plan, and counseling patient) on [DATE]. 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
--- NOTE | 2024-08-09 08:56 | PM.OP.COLON ---
Operative Date/Time/Diagnoses Date of procedure: 08/09/24 Pre-op diagnosis: See indication and findings Procedure & Clinicians Study performed: Colonoscopy Same procedure as scheduled: Yes Indications: Colorectal cancer screening with history of polyps Surgeon: Emmy Arambula Procedure Notes Procedure in detail: After informed consent was obtained the patient was placed in left lateral decubitus position. The video colonoscope was introduced the rectum slowly advanced cecum. Preparation was fair to good but poor in the cecum and rectum. Still, good visualization was achieved.. On slow withdrawal mucosa was carefully examined. The scope was removed. The patient tolerated procedure well. Blood loss none Complications none Sedation mac Findings 1. Extensive left-sided diverticulosis 2. 1 cm pedunculated polyp just above the cecum removed with hot snare and retrieved 3. 4 mm polyp in the transverse colon Jumbo biopsy removed completely 4. Two polyps in the distal sigmoid largest of which was 4 mm Jumbo biopsy removed completely Given the quality of prep in the number of polyps present and there size I would suggest he follow-up with a colonoscopy in 1-2 years
[2024-08-09 09:55] VITALS: BP 100/66; PULSE 96; RESP 15; TEMP 36.7; O2SAT 93
[2024-08-09 10:00] VITALS: BP 108/75; PULSE 81; RESP 14; TEMP 36.6; O2SAT 97
[2024-08-09 10:05] VITALS: BP 115/73; PULSE 78; RESP 17; O2SAT 96
== END 2024-08-09 10:34 | disposition home or self-care (01) ==
PROVIDERS: PCP Family Medicine; Referring Provider Internal Medicine Gastroenterology; Visit Provider Internal Medicine Gastroenterology
PROC: 0DJD8ZZ Inspection of Lower Intestinal Tract, Via Natural or Artificial Opening Endoscopic (ICD-10-PCS; CPT 45378; principal; 2024-08-09 09:30)
DX: Z12.11 Encounter for screening for malignant neoplasm of colon (principal); Z86.0100 Personal history of colon polyps, unspecified; K57.30 Diverticulosis of large intestine without perforation or abscess without bleeding; D12.2 Benign neoplasm of ascending colon; D12.3 Benign neoplasm of transverse colon; K63.5 Polyp of colon
CPT/HCPCS: 45385; 45380; 82962; J2704

== ENCOUNTER → 2024-10-25 17:15 | Outpatient (CLI) | payer MEDICARE, OTHER, SELFPAY ==
--- NOTE | 2024-10-25 17:16 | DI.MRI.S_ITS ---
PROCEDURE: MR KNEE RT WO CON INDICATIONS: PAIN IN RIGHT KNEE TECHNIQUE: Noncontrast sagittal PD fast spin echo and T2 fast spin echo with fat saturation, sagittal 3-D FLASH with fat saturation; coronal T1 spin echo and PD fast spin echo with fat saturation, and axial PD fast spin echo with fat saturation through the knee. COMPARISON: None. FINDINGS: Image quality: Excellent. Bones and cartilage: There is an approximately 1 cm diameter area of abnormal heterogeneous signal and irregularity in the cartilage of the lateral tibial plateau weight bearing central aspect (series 10, image 10; series 13, image 23) with underlying bone edema suspicious for osteonecrosis, osteochondritis dissecans or other process. No definitive intra-articular loose body. Otherwise there is mild thinning of the lateral compartment cartilage and the medial and patellofemoral compartment cartilage is within normal limits for patient's age without focal defect. No MR evidence of fracture line. Menisci: Mild signal changes in the posterior horn of the medial meniscus more likely to represent mild internal globular degenerative signal than oblique tear does not definitively exit to a surface. Otherwise the anterior horn of the medial meniscus and the anterior and posterior horns of the lateral meniscus are normal in size contour and signal intensity. Cruciate ligaments: Mild diffuse thinning of the mid and distal aspect of the anterior cruciate ligament but with intact fibers without tear or retraction. Posterior cruciate ligament is normal. Medial structures: The medial collateral ligament appears intact. The semimembranosus tendon insertion, and meniscocapsular junction appear intact. Visualized portions of the pes anserinus tendons appear normal. No abnormal bursal fluid. Lateral structures: Mild increased T2 weighted signal and thickening of the proximal lateral collateral ligament and the distal popliteus tendon mild tendinopathy/strain without full-thickness tear or retraction. The long and short heads of the biceps femoris tendon appear intact. Iliotibial band appears normal. Anterior structures: The quadriceps and patellar tendons appear intact. Patellar alignment is normal. No femoral trochlear dysplasia or ventral trochlear prominence. No edema in the infrapatellar fat pad. Joint space: Small popliteal cyst measures approximately 2 cm cc by 1 cm AP x 1 cm transverse. No significant knee joint effusion. IMPRESSION: Focal area of irregularity in the cartilage with subchondral edema in the lateral tibial plateau as discussed above, osteonecrosis or other process. Mild signal changes posterior horn of the medial meniscus more likely mild degenerative changes than oblique tear. Mild injury/strain proximal lateral collateral ligament distal popliteus tendon. Dictated by: Gabriel Abdullahi M.D. on 10/27/2024 at 12:00 Approved by: Gabriel Abdullahi M.D. on 10/27/2024 at 12:15
== END ==
PROVIDERS: PCP Family Medicine; Referring Provider Family Medicine; Visit Provider Family Medicine
DX: M71.21 Synovial cyst of popliteal space [Baker], right knee (principal); M25.561 Pain in right knee
CPT/HCPCS: 73721